=== PATIENT | female | born 1985 | race Caucasian/White ===

== ENCOUNTER → 2021-10-28 11:04 | Outpatient (CLI) | payer OTHER, SELFPAY ==
[2021-10-28 13:10] LABS: Anion Gap 7 (5-15); Calcium,Total 9.2 mg/dL (8.5-10.1); Chloride 104 mmol/L (98-107); Magnesium 2.3 mg/dL (1.6-2.6); Potassium 3.7 mmol/L (3.5-5.1); Sodium Level 138 mmol/L (136-145)
== END ==
PROVIDERS: Referring Provider Internal Medicine Pulmonary Disease; Visit Provider Internal Medicine Pulmonary Disease
DX: G47.411 Narcolepsy with cataplexy (principal); Z79.899 Other long term (current) drug therapy
CPT/HCPCS: 36415; 80051; 82310; 83735